=== PATIENT | female | born 1980 | race Caucasian/White ===

== ENCOUNTER 2020-04-05 16:17 | Emergency (ER) | payer OTHER ==
[2020-04-05 16:44] LABS: BASOPHILS # (AUTO) 0.1 10^3/uL (0.0-0.1); BASOPHILS % (AUTO) 0.6 %; EOSINOPHILS # (AUTO) 0.1 10^3/uL (0.0-0.7); EOSINOPHILS % (AUTO) 0.9 %; HGB - HEMOGLOBIN 12.7 g/dL (12.0-16.0); LYMPHOCYTES % (AUTO) 19.8 %; MEAN CORPUSCULAR HEMOGLOBIN 29.4 pg (27.0-31.0); MEAN CORPUSCULAR HGB CONC 33.4 g/dL (32.0-36.0); MEAN PLATELET VOLUME 9.2 fL (7.9-10.8); MONOCYTES # (AUTO) 0.7 10^3/uL (0.0-1.0); MONOCYTES % (AUTO) 6.9 %; NEUTROPHILS # (AUTO) 7.3 10^3/uL (1.5-6.6); NEUTROPHILS % (AUTO) 71.3 %; PLT - PLATELET COUNT 255 10^3/uL (130-450); RED BLOOD COUNT 4.32 10^6/uL (4.20-5.40); RED CELL DISTRIBUTION WIDTH 12.5 % (12.0-15.0); WHITE BLOOD COUNT 10.2 x10^3/uL (4.8-10.8)
[2020-04-05 16:45] LABS: BILIRUBIN,URINE NEGATIVE (NEGATIVE); GLUCOSE, URINE (UA) NEGATIVE (NEGATIVE); KETONES,URINE (UA) NEGATIVE (NEGATIVE); LEUKOCYTE ESTERASE, URINE NEGATIVE (NEGATIVE); NITRITE,URINE NEGATIVE (NEGATIVE); OCCULT BLOOD,URINE MODERATE (NEGATIVE); PROTEIN,URINE NEGATIVE (NEGATIVE); UROBILINOGEN,URINE 0.2 (NORMAL) E.U./dL (NORMAL)
[2020-04-05] MEDS ORDERED: KETOROLAC 30 MG/ML VIAL IVP STA (16:46)
[2020-04-05 16:47] LABS: CLARITY,URINE CLEAR (CLEAR)
--- NOTE | 2020-04-05 16:47 | ED Physician Documentation ---
PD HPI ABD PAIN - Stated complaint Stated Complaint: ABD PX - LOWER LEFT SIDE - Chief complaint Chief Complaint: Abd Pain - History obtained from History obtained from: Patient - Additional information Additional information: 40-year-old woman with history of remote cholecystectomy presents with about 4 days of constant gradual onset left lower quadrant pain radiating to the back associated with a stinging urethral sensation when she urinates but otherwise normal urine. No fevers or chills. No nausea. No constipation or diarrhea. She is never had this before. Review of Systems Ten Systems: 10 systems reviewed and negative Constitutional: denies: Fever, Chills Cardiac: denies: Chest pain / pressure, Palpitations Respiratory: denies: Dyspnea, Cough GI: reports: Abdominal Pain PD PAST MEDICAL HISTORY - Present Medications Home Medications: Ambulatory Orders Medication Instructions Recorded Confirmed Hydrocodone/Acetaminophen 1 - 2 each PO Q6H PRN #14 tablet 04/05/20 [Hydrocodon-Acetaminophen 5-325] - Allergies Allergies/Adverse Reactions: Allergies Allergy/AdvReac Type Severity Reaction Status Date / Time Penicillins Allergy Hives Verified 04/05/20 16:22 PD ED PE NORMAL - Vitals Vital signs reviewed: Yes - General General: Alert and oriented X 3, Other (Appears uncomfortable) - Cardiac Cardiac: RRR, No murmur - Respiratory Respiratory: No respiratory distress, Clear bilaterally - Abdomen Abdomen: Normal bowel sounds, Soft, Non tender - Derm Derm: Normal color, Warm and dry - Neuro Neuro: Alert and oriented X 3, Normal speech Results - Vitals Vitals: Vital Signs - 24 hr 04/05/20 04/05/20 04/05/20 16:22 16:51 18:06 Temperature 37.2 C 36.8 C Heart Rate 89 81 80 Respiratory 20 18 12 Rate Blood Pressure 134/85 H 132/90 H 124/82 H O2 Saturation 98 98 98 Oxygen O2 Source Room air - Labs Labs: Laboratory Tests 04/05/20 04/05/20 04/05/20 16:38 16:38 16:38 WBC 10.2 RBC 4.32 Hgb 12.7 Hct 38.0 MCV 88.0 MCH 29.4 MCHC 33.4 RDW 12.5 Plt Count 255 MPV 9.2 Neut # (Auto) 7.3 H Lymph # (Auto) 2.0 [place] # (Auto) 0.7 Eos # (Auto) 0.1 Baso # (Auto) 0.1 Absolute Nucleated RBC 0.00 Nucleated RBC % 0.0 Sodium 136 Potassium 3.5 Chloride 103 Carbon Dioxide 24 Anion Gap 9.0 BUN 9 Creatinine 0.6 Estimated GFR (MDRD) 111 Glucose 99 Calcium 9.1 Total Bilirubin 1.0 AST 16 ALT 13 Alkaline Phosphatase 45 Total Protein 7.7 Albumin 4.4 Globulin 3.3 Albumin/Globulin Ratio 1.3 Lipase 28 Urine Color YELLOW Urine Clarity CLEAR Urine pH 6.0 Ur Specific [place] <=1.005 Urine Protein NEGATIVE Urine Glucose (UA) NEGATIVE Urine Ketones NEGATIVE Urine Occult Blood MODERATE H Urine Nitrite NEGATIVE Urine Bilirubin NEGATIVE Urine Urobilinogen 0.2 (NORMAL) Ur Leukocyte Esterase NEGATIVE Urine RBC 0-5 Urine WBC 4-5 Ur Squamous Epith Cells RARE Squamous Urine Bacteria None Seen Ur Microscopic Review INDICATED Urine Culture Comments NOT INDICATED Urine HCG, Qual NEGATIVE - Rads (name of study) Ct A/P Radiology: EMP read contemporaneously PD MEDICAL DECISION MAKING - ED course ED course: Seem to most consistent with renal colic, CT shows only a fibroid uterus which is canted over to the left with some compression of the bladder asymmetrically on the left so I suspect that is what causing her pain. She also has diverticulosis. Departure - Departure Disposition: 01 Home, Self Care Clinical Impression: Fibroids Abdominal pain Qualifiers: Abdominal location: left lower quadrant Qualified Code(s): R10.32 - Left lower quadrant pain Condition: Good Record reviewed to determine appropriate education?: Yes Instructions: ED Fibroids Follow-Up: [facility] [Provider Group] Prescriptions: Hydrocodone/Acetaminophen [Hydrocodon-Acetaminophen 5-325] 1 - 2 each PO Q6H PRN #14 tablet PRN Reason: pain Comments: Return for new or worsening symptoms. As discussed imaging shows that you have a fibroid uterus, compressing the left side of the bladder. Suspect this is causing your symptoms. Follow-up with a cardroom plastic card grader, call them on Tuesday to discuss options.
[2020-04-05 16:50] LABS: HCG UR QUAL NEGATIVE
[2020-04-05 16:54] LABS: BACTERIA,URINE None Seen /HPF (None Seen); RBC,URINE 0-5 /HPF (0-5); SQUAMOUS EPITHELIAL CELL,UR RARE Squamous (<= Few)
[2020-04-05 16:59] LABS: ALBUMIN 4.4 g/dL (3.2-5.5); ALBUMIN/GLOBULIN RATIO 1.3 (1.0-2.2); CALCIUM 9.1 mg/dL (8.5-10.3); CREATININE 0.6 mg/dL (0.4-1.0); TOTAL PROTEIN 7.7 g/dL (6.7-8.2)
--- NOTE | 2020-04-05 17:51 | CT Report ---
PROCEDURE: Abdomen/Pelvis WO INDICATIONS: LLQ pain, ?renal colic TECHNIQUE: Noncontrast 5 mm thick sections acquired from the diaphragms to the symphysis. 5 mm coronal and sagi ttal reformats were then performed. For radiation dose reduction, the following was used: automated exposure control, adjustment of mA and/or kV according to patient size. COMPARISON: None. FINDINGS: Image quality: Excellent. ABDOMEN: Lung bases: Lung bases are clear. Heart size is normal. A small hiatal hernia is incidentally note d. Solid organs: Liver and spleen are normal in size. Gallbladder has been removed. Pancreas is alice l in contours. No adrenal nodules. Kidneys are normal in size, without hydronephrosis or nephrolith iasis. Peritoneum and bowel: Unenhanced bowel loops demonstrate normal wall thickness and caliber. No free fluid or air. A normal appendix is incidentally noted. Minimal sigmoid diverticulosis. No finding s of active diverticulitis are seen. Nodes and vessels: No retroperitoneal or mesenteric adenopathy by size criteria. Aorta and inferior vena cava are normal in caliber. Miscellaneous: No ventral hernias. PELVIS: Genitourinary: Bladder wall thickness is normal. Pelvic phleboliths are seen, which are separate fr om the distal ureters. A fibroid uterus is seen. No adnexal masses are seen on either side. Miscellaneous: No inguinal hernias or adenopathy. Bones: No suspicious bony lesions. No vertebral body compression fractures. Mild levoconvex scolio tic curvature is seen. IMPRESSION: No findings of kidney stones or obstructive uropathy can be seen. Minimal sigmoid diverticulosis, without findings of active diverticulitis. Incidental note is made of: Small hiatal hernia Cholecystectomy Fibroid uterus Levoconvex scoliotic curvature Normal appendix Reviewed by: Drew King MD on 04/05/2020 4:49 PM [place] Approved by: Drew King MD on 04/05/2020 4:49 PM [place] Station ID: [id number]
[2020-04-05 18:07] VITALS: BP 124/82
== END 2020-04-05 18:28 | disposition home or self-care (01) ==
LOC: ED 16:17
DX: D25.9 Leiomyoma of uterus, unspecified (principal); R10.32 Left lower quadrant pain
CPT/HCPCS: 36415; 74176; 80053; 81001; 81003; 81025; 83690; 85025; 87086; 96374; 99284

== ENCOUNTER 2020-04-09 21:41 | Outpatient (CLI) | payer OTHER ==
--- NOTE | 2020-04-10 11:23 | Ultrasound Report ---
PROCEDURE: Pelvic w/Transvaginal INDICATIONS: ACUTE PELVIC PAIN TECHNIQUE: Real-time scanning was performed of the pelvic organs, with image documentation. Additional endovagi nal scanning was necessary due to incomplete visualization of the adnexal and endometrial structures by transabdominal scanning. COMPARISON: None. FINDINGS: Transabdominal scanning: Limited scanning through the kidneys shows no hydronephrosis. No pathologi c free abdominal or pelvic fluid. Endovaginal scanning: Uterus: Uterus is normal in size at 9.7 x 5.7 x 4.8 cm. The endometrium measures 8.8 mm in combined thickness. Within the left anterior subserosal region there is a 5.6 x 5.0 x 4.4 cm focus of hetero geneous echogenicity with calcification. A similar-appearing focus in the mid posterior intramural re gion is identified measuring 3.6 x 3.8 x 3.7 cm. A third similar focus in the right posterior subsero jolene region is identified measuring 1.2 x 1.5 x 1.1 cm. Nabothian cysts are present. Ovaries: Right ovary measures 1.8 x 1.7 x 2.2 cm.. Volume measures 3.5 cc. Less than 12 follicles ar e noted. Arterial and venous flow are identified. Left ovary measures 2.7 x 2.8 x 2.1 cm. Volume per ures 8.3 cc. Less than 12 follicles are noted. Arterial venous flow are present. IMPRESSION: 1. Multiple areas of heterogeneous echogenicity within the uterus most suggestive of fibroids. The above findings are concordant with preliminary report. Reviewed by: Valentina Campos MD on 04/10/2020 11:22 AM PDT Approved by: Valentina Campos MD on 04/10/2020 11:22 AM PDT Station ID: [id number]
== END 2020-04-09 21:42 | disposition home or self-care (01) ==
LOC: DI 21:41
PROVIDERS: ATTEND Obstetrics & Gynecology
DX: R93.89 Abnormal findings on diagnostic imaging of other specified body structures (principal)
CPT/HCPCS: 76830; 76856